=== PATIENT | female | born 1950 | race Caucasian/White ===

== ENCOUNTER 2018-08-26 14:54 | Inpatient (IN) | payer MEDICARE ==
[2018-08-26] MEDS ORDERED: LORazepam 2 MG/ML INJ IV STA (15:28)
[2018-08-26] MEDS ORDERED: SODIUM CHLORIDE 0.9% 500 ML 500 ML IV STA (15:28)
[2018-08-26] MEDS ORDERED: MECLIZINE 12.5 MG TAB PO STA (15:28)
[2018-08-26] MEDS ORDERED: METOCLOPRAMIDE 5 MG/ML 2 ML VIAL IVP STA (15:28)
--- NOTE | 2018-08-26 15:47 | ED ---
General Adult HPI - General Chief complaint: Recheck/Abnormal Lab/Rx Stated complaint: poss sepsis Time Seen by Provider: 08/26/18 15:16 Source: patient, EMS, RN notes reviewed Mode of arrival: EMS Limitations: no limitations - History of Present Illness Initial comments: Chief complaint and history of present illness; this is a 67-year-old female with a complaint of nausea vomiting ongoing for approximately 24 hours. Patient is a transfer from [facility]. At her facility she was treated for accelerated hypertension with labetalol. Also treated for hypokalemia, she received IV fluids. She had a CAT scan of her brain which was reported to be negative per radiologist as well as an abdominal CAT scan with contrast which was negative as well for pathology. Urine was clean. White count was elevated 22,000 with a mildly elevated lactic acid. She was transferred here. Patient reports this happened before, several years ago necessitating admission. The patient reports she has ALLERGIES to any movement of her head causes nausea and vomiting. She is denying headache no chest pain no shortness of breath no neuro deficits other than dizziness associated with head movement. - Related Data Allergies Allergy/AdvReac Type Severity Reaction Status Date / Time naproxen [From Naprosyn] Allergy Unknown Verified 08/26/18 15:20 Review of Systems ROS Statement: Those systems with pertinent positive or pertinent negative responses have been documented in the HPI. Review of systems. Patient was accepted transfer from [facility]. She received IV antibiotics there, CAT scan of her brain and abdomen was reported to be negative. She was treated for accelerated hypertension. As well as hypokalemia. No headache but she is dizzy with head movement no change in visual acuity denies any neck ache no shortness of breath no palpitations she is nauseated and vomiting precipitated by head movement and position changes. No back pain. sHe does report she's had increased urinations. She does have type 2 diabetes. Denies any weakness. No focal or lateralizing complaints. All systems are reviewed. Past medical problems significant for vertigo. Also type 2 diabetes, hypertension, fibromyalgia, diverticulitis. Surgeries bowel resection because of a ruptured bowel and diverticulitis. Also tonsils and adenoids removed, partial hysterectomy and appendectomy. The patient family history is unknown to her she was adopted. She uses medical marijuana for chronic pain. Reports ALLERGIES to naproxen which causes hives. Denies alcohol use. ROS Other: All systems not noted in ROS Statement are negative. Past Medical History Past Medical History: Diabetes Mellitus, Hypertension Additional Past Medical History / Comment(s): diverticulitis, vertigo Additional Past Surgical History / Comment(s): 12 inch colon resection. Smoking Status: Never smoker Past Alcohol Use History: None Reported Past Drug Use History: Marijuana General Exam - General Exam Comments Initial Comments: General: The patient is awake and alert, patient presents with a complaint of dizziness with head movement. She was transferred from another facility where workup at that time found her to have leukocytosis of 22,000. This was after 24 hours of vomiting as well as elevated lactic acid and elevated blood sugar of 350. Low potassium 2.8. The patient was given labetalol and potassium at the other facility. Patient states she's feeling better vital signs on rolled while emergency room temp 98.7 pulse 96 respiratory rate 18 pulse ox 95% in room air with a blood pressure 177/95. Eye: Pupils are equal, round and reactive to light, extra-ocular movements are intact ; there is normal conjunctiva bilaterally. No signs of icterus. No nystagmus Ears, nose, mouth and throat: There are moist mucous membranes and no oral lesions. Neck: The neck is supple, there is no tenderness , no carotid bruit. Cardiovascular: There is a regular rate and rhythm. No murmur, rub or gallop is appreciated. Respiratory: Lungs are clear to auscultation, respirations are non-labored, breath sounds are equal. No wheezes, stridor, rales, or rhonchi. Gastrointestinal: Soft, non-distended, non-tender abdomen without masses or organomegaly noted. There is no rebound or guarding present. No CVA tenderness. Bowel sounds are unremarkable. Back: There is no tenderness to palpation in the midline. There is no obvious deformity. No rashes noted. Musculoskeletal: Normal ROM, no tenderness, There is no pedal edema. There is no calf tenderness or swelling. Sensation intact. Pulses equal bilaterally 2+. Neurological: CN II-XII intact, There are no obvious motor or sensory deficits. Coordination appears grossly intact. Speech is normal. No focal or lateralizing findings. Patient is dizzy though with head movement. Skin: Skin is warm and dry and no rashes or lesions are noted. Psychiatric: Cooperative, appropriate mood & affect, normal judgment. Limitations: no limitations Course Vital Signs 08/26/18 08/26/18 08/26/18 14:55 15:04 15:30 Temperature 98.8 F Pulse Rate 96 94 Respiratory 18 18 Rate Blood Pressure 177/95 177/95 O2 Sat by Pulse 95 96 99 Oximetry 08/26/18 08/26/18 16:00 16:30 Temperature Pulse Rate 94 91 Respiratory 14 18 Rate Blood Pressure 169/100 161/84 O2 Sat by Pulse 99 98 Oximetry EKG Findings - EKG Comments: EKG Findings:: EKG was done at 1516 showing normal sinus rhythm with sinus arrhythmia. No acute ST elevation possible left atrial enlargement. Rate 87 SD interval is 140 QRS 94 QTc 474. No acute ST elevation. Dr. Adair Medical Decision Making - Medical Decision Making Medical decision making; this is a 67-year-old female transferred from [facility] ER to [facility] facility. At that facility she had several complaints one of which was significantly elevated blood pressure currently well managed. Dizziness associated with head movement. She underwent CAT scan of brain and abdomen while there. Both reported to be negative by radiology. She had an elevated white count, urine was clean, she also had lactic acidosis.. The patient was started on Zosyn. also had . Here in emergency room the patient was given IV fluids, Antivert by mouth and Ativan as well as Reglan. The patient reports her dizziness is gone. Vital signs are stable. The patient be admitted for observation with a diagnosis of accelerated hypertension, symptomatic . Labs performed here in the emergency room show white count 16,000 hemoglobin 15.8 hematocrit of 48, potassium 4.1 with BUN 12 creatinine 0.7 and GFR 90. Glucose 205 at bedside was 175. Urine is clean no signs of infection. The patient's feeling significantly better after medications given here including rehydration. I discussed the case with Dr. garza. Patient be admitted to his service for further evaluation. Patient be admitted diagnosis of vertigo, symptomatic as well as urgent hypertension and lactic acidosis. Dr. garza will decide further management of medications including Zosyn if deemed necessary. Dr. Adair - Lab Data Result diagrams: 08/26/18 15:55 08/26/18 15:55 Lab Results 08/26/18 08/26/18 08/26/18 Range/Units 15:55 15:55 15:55 WBC 16.2 H (3.8-10.6) k/uL RBC 5.39 (3.80-5.40) m/uL Hgb 15.8 (11.4-16.0) gm/dL Hct 48.3 H (34.0-46.0) % MCV 89.6 (80.0-100.0) fL MCH 29.3 (25.0-35.0) pg MCHC 32.7 (31.0-37.0) g/dL RDW 13.8 (11.5-15.5) % Plt Count 322 (150-450) k/uL Neutrophils % 90 % Lymphocytes % 6 % Monocytes % 4 % Eosinophils % 0 % Basophils % 0 % Neutrophils # 14.5 H (1.3-7.7) k/uL Lymphocytes # 0.9 L (1.0-4.8) k/uL Monocytes # 0.6 (0-1.0) k/uL Eosinophils # 0.1 (0-0.7) k/uL Basophils # 0.0 (0-0.2) k/uL Sodium 138 (137-145) mmol/L Potassium 4.1 (3.5-5.1) mmol/L Chloride 104 (98-107) mmol/L Carbon Dioxide 22 (22-30) mmol/L Anion Gap 12 mmol/L BUN 12 (7-17) mg/dL Creatinine 0.70 (0.52-1.04) mg/dL Est GFR (CKD-EPI)AfAm >90 (>60 ml/min/1.73 sqM) Est GFR (CKD-EPI)NonAf 90 (>60 ml/min/1.73 sqM) Glucose 205 H (74-99) mg/dL POC Glucose (mg/dL) (75-99) mg/dL POC Glu Ceramic Tile Mechanic ID Calcium 8.3 L (8.4-10.2) mg/dL Total Bilirubin 0.9 (0.2-1.3) mg/dL AST 26 (14-36) U/L ALT 28 (9-52) U/L Alkaline Phosphatase 81 (38-126) U/L Total Protein 7.3 (6.3-8.2) g/dL Albumin 4.2 (3.5-5.0) g/dL Urine Color Colorless Urine Appearance Clear (Clear) Urine pH 6.5 (5.0-8.0) Ur Specific [place] 1.016 (1.001-1.035) Urine Protein 1+ H (Negative) Urine Glucose (UA) 4+ H (Negative) Urine Ketones 1+ H (Negative) Urine Blood Trace H (Negative) Urine Nitrite Negative (Negative) Urine Bilirubin Negative (Negative) Urine Urobilinogen <2.0 (<2.0) mg/dL Ur Leukocyte Esterase Negative (Negative) Urine RBC <1 (0-5) /hpf Urine WBC 1 (0-5) /hpf Ur Squamous Epith Cells 1 (0-4) /hpf Urine Bacteria Rare H (None) /hpf Urine Mucus Rare H (None) /hpf 08/26/18 Range/Units 16:42 WBC (3.8-10.6) k/uL RBC (3.80-5.40) m/uL Hgb (11.4-16.0) gm/dL Hct (34.0-46.0) % MCV (80.0-100.0) fL MCH (25.0-35.0) pg MCHC (31.0-37.0) g/dL RDW (11.5-15.5) % Plt Count (150-450) k/uL Neutrophils % % Lymphocytes % % Monocytes % % Eosinophils % % Basophils % % Neutrophils # (1.3-7.7) k/uL Lymphocytes # (1.0-4.8) k/uL Monocytes # (0-1.0) k/uL Eosinophils # (0-0.7) k/uL Basophils # (0-0.2) k/uL Sodium (137-145) mmol/L Potassium (3.5-5.1) mmol/L Chloride (98-107) mmol/L Carbon Dioxide (22-30) mmol/L Anion Gap mmol/L BUN (7-17) mg/dL Creatinine (0.52-1.04) mg/dL Est GFR (CKD-EPI)AfAm (>60 ml/min/1.73 sqM) Est GFR (CKD-EPI)NonAf (>60 ml/min/1.73 sqM) Glucose (74-99) mg/dL POC Glucose (mg/dL) 173 H (75-99) mg/dL POC Glu Ceramic Tile Mechanic ID February Calcium (8.4-10.2) mg/dL Total Bilirubin (0.2-1.3) mg/dL AST (14-36) U/L ALT (9-52) U/L Alkaline Phosphatase (38-126) U/L Total Protein (6.3-8.2) g/dL Albumin (3.5-5.0) g/dL Urine Color Urine Appearance (Clear) Urine pH (5.0-8.0) Ur Specific [place] (1.001-1.035) Urine Protein (Negative) Urine Glucose (UA) (Negative) Urine Ketones (Negative) Urine Blood (Negative) Urine Nitrite (Negative) Urine Bilirubin (Negative) Urine Urobilinogen (<2.0) mg/dL Ur Leukocyte Esterase (Negative) Urine RBC (0-5) /hpf Urine WBC (0-5) /hpf Ur Squamous Epith Cells (0-4) /hpf Urine Bacteria (None) /hpf Urine Mucus (None) /hpf Disposition Clinical Impression: Vertigo, Dehydration, moderate, Lactic acidosis, Hypertensive urgency Disposition: ADMITTED IP TO THIS [facility] Condition: Serious Is patient prescribed a controlled substance at d/c from ED?: No Referrals: None,Stated [Primary Care Provider] - 1-2 days
[2018-08-26 16:12] LABS: Basophils % (A) 0 %; Eosinophils # (A) 0.1 k/uL (0-0.7); Eosinophils % (A) 0 %; HCT 48.3 % (34.0-46.0); HGB 15.8 gm/dL (11.4-16.0); Lymphocytes # (A) 0.9 k/uL (1.0-4.8); Lymphocytes % (A) 6 %; MCH 29.3 pg (25.0-35.0); MCHC 32.7 g/dL (31.0-37.0); MCV 89.6 fL (80.0-100.0); Mean Platelet Volume 6.8; Monocytes # (A) 0.6 k/uL (0-1.0); Monocytes % (A) 4 %; Neutrophils # (A) 14.5 k/uL (1.3-7.7); Neutrophils % (A) 90 %; Platelet Count 322 k/uL (150-450); RBC 5.39 m/uL (3.80-5.40); RDW 13.8 % (11.5-15.5); WBC 16.2 k/uL (3.8-10.6)
[2018-08-26 16:14] LABS: Appearance,Urine Clear (Clear); Bacteria,Urine Rare /hpf; Bilirubin,Urine Negative (Negative); Blood,Urine Trace (Negative); Color,Urine Colorless; Glucose,Urine (UA) 4+ (Negative); Ketones,Urine 1+ (Negative); Leukocyte Esterase,Urine Negative (Negative); Mucus,Urine Rare /hpf; Nitrite,Urine Negative (Negative); PH, Urine 6.5 (5.0-8.0); Protein,Urine 1+ (Negative); RBC,Urine <1 /hpf (0-5); Specific Gravity,Urine 1.016 (1.001-1.035); Squamous Epithelial Cell,Urine 1 /hpf (0-4); Urobilinogen,Urine <2.0 mg/dL (<2.0); WBC,Urine 1 /hpf (0-5)
[2018-08-26 16:15] LABS: ALT 28 U/L (9-52); AST 26 U/L (14-36); Albumin 4.2 g/dL (3.5-5.0); Alkaline Phosphatase 81 U/L (38-126); Anion Gap 12 mmol/L; Blood Urea Nitrogen 12 mg/dL (7-17); Calcium 8.3 mg/dL (8.4-10.2); Carbon Dioxide 22 mmol/L (22-30); Chloride 104 mmol/L (98-107); Glucose 205 mg/dL (74-99); Potassium 4.1 mmol/L (3.5-5.1); Sodium 138 mmol/L (137-145); Total Bilirubin 0.9 mg/dL (0.2-1.3); Total Protein 7.3 g/dL (6.3-8.2)
[2018-08-26 16:45] LABS: Glucose,Whole Blood 173 mg/dL (75-99)
[2018-08-26] MEDS ORDERED: NALOXONE 0.4 MG/ML 1 ML VIAL IV PRN (17:23)
[2018-08-26] MEDS: SODIUM CHLORIDE 0.9% 1,000 ML IV SCH (20:15)
[2018-08-27] MEDS: GLIMEPIRIDE 2 MG TAB PO SCH ×2 (02:31→10:00)
[2018-08-27 04:43] LABS: Glucose,Whole Blood 146 mg/dL (75-99)
[2018-08-27] MEDS: ENALAPRILAT 1.25 MG/ML 1 ML VIAL IVP PRN ×2 (06:35→17:38)
[2018-08-27] MEDS: ONDANSETRON 4 MG/2 ML VIAL IVP PRN ×2 (06:37→22:38)
[2018-08-27 07:23] LABS: Basophils % (A) 0 %; Eosinophils # (A) 0.1 k/uL (0-0.7); Eosinophils % (A) 0 %; HCT 45.1 % (34.0-46.0); HGB 15.1 gm/dL (11.4-16.0); Lymphocytes # (A) 1.6 k/uL (1.0-4.8); Lymphocytes % (A) 7 %; MCH 29.7 pg (25.0-35.0); MCHC 33.6 g/dL (31.0-37.0); MCV 88.4 fL (80.0-100.0); Mean Platelet Volume 6.6; Monocytes # (A) 0.9 k/uL (0-1.0); Monocytes % (A) 4 %; Neutrophils # (A) 21.5 k/uL (1.3-7.7); Neutrophils % (A) 89 %; Platelet Count 330 k/uL (150-450); RDW 13.8 % (11.5-15.5); WBC 24.3 k/uL (3.8-10.6)
[2018-08-27 07:36] LABS: Calcium 8.5 mg/dL (8.4-10.2); Potassium 4.1 mmol/L (3.5-5.1)
[2018-08-27] MEDS: PANTOPRAZOLE 40 MG/10 ML VIAL IV SCH (10:11)
[2018-08-27] MEDS: SODIUM CHLORIDE 0.9% 1,000 ML IV SCH ×3 (10:11→21:19)
[2018-08-27 13:10] VITALS: BMI 25.0
--- NOTE | 2018-08-27 16:33 | P.HPIM ---
History of Present Illness H&P Date: 08/27/18 Chief complaint and history of present illness; this is a 67-year-old female with a complaint of nausea vomiting ongoing for approximately 24 hours. Patient is a transfer from [facility]. At her facility she was treated for accelerated hypertension with labetalol. Also treated for hypokalemia, she received IV fluids. She had a CAT scan of her brain which was reported to be negative per radiologist as well as an abdominal CAT scan with contrast which was negative as well for pathology. Urine was clean. White count was elevated 22,000 with a mildly elevated lactic acid. She was transferred here. Patient reports this happened before, several years ago necessitating admission. The patient reports she has ALLERGIES to any movement of her head causes nausea and vomiting. She is denying headache no chest pain no shortness of breath no neuro deficits other than dizziness associated with head movement. Review of Systems Constitutional: Denies chills, Denies fever Eyes: denies blurred vision, denies dry eye, denies loss of vision Ears, nose, mouth and throat: Denies epistaxis, Denies headache, Denies nasal congestion, Denies voice changes Cardiovascular: Denies dyspnea on exertion, Denies lightheadedness, Denies syncope Respiratory: Reports congestion, Denies hemoptysis Gastrointestinal: Denies abdominal pain, Denies nausea, Denies vomiting Genitourinary: Denies dysuria, Denies hematuria, Denies urinary frequency Musculoskeletal: Denies frequent falls, Denies gait dysfunction, Denies low back pain Past Medical History Past Medical History: Diabetes Mellitus, Hypertension Additional Past Medical History / Comment(s): diverticulitis, vertigo Additional Past Surgical History / Comment(s): 12 inch colon resection. Smoking Status: Never smoker Past Alcohol Use History: None Reported Past Drug Use History: Marijuana Medications and Allergies Home Medications Medication Instructions Recorded Confirmed Type No Known Home Medications 08/26/18 08/26/18 History Allergies Allergy/AdvReac Type Severity Reaction Status Date / Time naproxen [From Naprosyn] Allergy Unknown Verified 08/26/18 18:10 Physical Exam Vitals: Vital Signs Temp Pulse Pulse Resp BP BP Pulse Ox 08/27/18 08:00 97.9 F 88 18 164/94 98 08/27/18 07:48 99 08/27/18 06:30 104 H 18 208/106 97 08/27/18 04:30 98.3 F 106 H 15 155/88 99 08/27/18 02:30 96 16 137/78 96 08/27/18 02:00 98 16 143/80 95 08/27/18 00:04 98 18 08/27/18 00:00 89 13 155/91 95 08/26/18 23:00 98 14 140/72 96 08/26/18 22:00 93 16 140/72 97 08/26/18 21:09 95 16 140/72 98 08/26/18 21:00 93 14 189/88 97 08/26/18 20:30 94 14 189/88 96 08/26/18 20:00 99 12 189/88 97 08/26/18 19:30 111 H 26 H 133/82 08/26/18 19:11 98.6 F 96 18 133/82 98 08/26/18 19:00 94 13 135/80 08/26/18 17:00 96 13 142/81 100 08/26/18 16:30 91 18 161/84 98 08/26/18 16:00 94 14 169/100 99 08/26/18 15:30 94 18 177/95 99 08/26/18 15:04 96 08/26/18 14:55 98.8 F 96 18 177/95 95 Intake and Output 08/26/18 08/27/18 08/27/18 22:59 06:59 14:59 Output Total 490 300 Balance -490 -300 Output: Urine 490 300 Uretheral (Watson) 490 - Constitutional General appearance: Present: average body habitus, cooperative, no acute distress - EENT Eyes: Present: anicteric sclerae, EOMI, PERRLA, normal appearance ENT: Present: hearing grossly normal, normal oropharynx Ears: bilateral: normal - Neck Neck: Present: normal ROM. Absent: lymphadenopathy, rigidity, thyromegaly Carotids: negative: bruit present Thyroid: bilateral: normal size, negative: enlarged, nodule - Respiratory Respiratory: bilateral: CTA, negative: rales, rhonchi, wheezing - Cardiovascular Rhythm: regular Heart sounds: normal: S1, S2 Abnormal Heart Sounds: Absent: systolic murmur, diastolic murmur - Gastrointestinal General gastrointestinal: Present: normal bowel sounds, soft. Absent: distended , organomegaly, tenderness - Genitourinary Genitourinary Comment(s): deferred - Integumentary Integumentary: Present: normal turgor. Absent: jaundiced, rash, ulcer - Neurologic Neurologic: Present: CNII-XII intact. Absent: focal deficits - Musculoskeletal Musculoskeletal: Present: gait normal, strength equal bilaterally - Psychiatric Psychiatric: Present: A&O x's 3, appropriate affect, intact judgment & insight Results CBC & Chem 7: 08/27/18 07:11 08/27/18 07:11 Labs: Abnormal Lab Results - Last 24 Hours (Table) 08/26/18 08/26/18 08/26/18 Range/Units 15:55 15:55 15:55 WBC 16.2 H (3.8-10.6) k/uL Hct 48.3 H (34.0-46.0) % Neutrophils # 14.5 H (1.3-7.7) k/uL Lymphocytes # 0.9 L (1.0-4.8) k/uL Chloride (98-107) mmol/L Glucose 205 H (74-99) mg/dL POC Glucose (mg/dL) (75-99) mg/dL Plasma Lactic Acid [place] (0.7-2.0) mmol/L Calcium 8.3 L (8.4-10.2) mg/dL Urine Protein 1+ H (Negative) Urine Glucose (UA) 4+ H (Negative) Urine Ketones 1+ H (Negative) Urine Blood Trace H (Negative) Urine Bacteria Rare H (None) /hpf Urine Mucus Rare H (None) /hpf 08/26/18 08/26/18 08/27/18 Range/Units 16:42 17:30 04:39 WBC (3.8-10.6) k/uL Hct (34.0-46.0) % Neutrophils # (1.3-7.7) k/uL Lymphocytes # (1.0-4.8) k/uL Chloride (98-107) mmol/L Glucose (74-99) mg/dL POC Glucose (mg/dL) 173 H 146 H (75-99) mg/dL Plasma Lactic Acid [place] 2.4 H* (0.7-2.0) mmol/L Calcium (8.4-10.2) mg/dL Urine Protein (Negative) Urine Glucose (UA) (Negative) Urine Ketones (Negative) Urine Blood (Negative) Urine Bacteria (None) /hpf Urine Mucus (None) /hpf 08/27/18 08/27/18 Range/Units 07:11 07:11 WBC 24.3 H (3.8-10.6) k/uL Hct (34.0-46.0) % Neutrophils # 21.5 H (1.3-7.7) k/uL Lymphocytes # (1.0-4.8) k/uL Chloride 109 H (98-107) mmol/L Glucose 154 H (74-99) mg/dL POC Glucose (mg/dL) (75-99) mg/dL Plasma Lactic Acid [place] (0.7-2.0) mmol/L Calcium (8.4-10.2) mg/dL Urine Protein (Negative) Urine Glucose (UA) (Negative) Urine Ketones (Negative) Urine Blood (Negative) Urine Bacteria (None) /hpf Urine Mucus (None) /hpf Assessment and Plan Assessment: 1. Accelerated hypertension 2. Hyperglycemia without acidosis 3. Marked Leukocytosis; sepsis versus reactive leukocytosis 4. Lactic acidosis 5. Vertigo/dizziness Plan; 67-year-old female transferred from [facility] ER to [facility] facility. At that facility she had several complaints one of which was significantly elevated blood pressure currently well managed. Dizziness associated with head movement. She underwent CAT scan of brain and abdomen while there. Both reported to be negative by radiology. She had an elevated white count, urine was clean, she also had lactic acidosis.. The patient was started on Zosyn. also had . Here in emergency room the patient was given IV fluids, Antivert by mouth and Ativan as well as Reglan. The patient reports her dizziness is gone. Vital signs are stable. The patient be admitted for observation with a diagnosis of accelerated hypertension, symptomatic . Labs performed here in the emergency room show white count 16,000 hemoglobin 15.8 hematocrit of 48, potassium 4.1 with BUN 12 creatinine 0.7 and GFR 90. Glucose 205 at bedside was 175. Urine is clean no signs of infection. The patient's feeling significantly better after medications given here including rehydration. I discussed the case with Dr. garza. Patient be admitted to his service for further evaluation. Patient be admitted diagnosis of vertigo, symptomatic as well as urgent hypertension and lactic acidosis. Dr. garza will decide further management of medications including Zosyn if deemed necessary. Time with Patient: Greater than 30
[2018-08-27 17:03] LABS: Glucose,Whole Blood 155 mg/dL (75-99)
[2018-08-27] MEDS: INSULIN ASPART 100 UNIT/ML 1 ML 10 ML VIAL SQ SCH ×2 (18:25→21:13)
[2018-08-27 21:05] LABS: Glucose,Whole Blood 106 mg/dL (75-99)
[2018-08-27] MEDS: HYDROcodone/APAP 5-325MG 1 EACH TAB PO PRN (22:38)
[2018-08-27] MEDS: MECLIZINE 12.5 MG TAB PO PRN (22:59)
[2018-08-28] MEDS: ENALAPRILAT 1.25 MG/ML 1 ML VIAL IVP PRN ×2 (00:04→08:21)
[2018-08-28] MEDS: INSULIN ASPART 100 UNIT/ML 1 ML 10 ML VIAL SQ SCH ×4 (06:35→21:19)
[2018-08-28] MEDS: GLIMEPIRIDE 2 MG TAB PO SCH (06:36)
[2018-08-28 06:43] LABS: Glucose,Whole Blood 141 mg/dL (75-99)
[2018-08-28 07:41] LABS: Basophils # (A) 0.1 k/uL (0-0.2); Basophils % (A) 0 %; Eosinophils # (A) 0.1 k/uL (0-0.7); Eosinophils % (A) 1 %; HCT 45.4 % (34.0-46.0); HGB 14.9 gm/dL (11.4-16.0); Lymphocytes # (A) 3.1 k/uL (1.0-4.8); Lymphocytes % (A) 22 %; MCH 29.4 pg (25.0-35.0); MCHC 32.9 g/dL (31.0-37.0); MCV 89.5 fL (80.0-100.0); Mean Platelet Volume 6.6; Monocytes # (A) 0.7 k/uL (0-1.0); Monocytes % (A) 5 %; Neutrophils # (A) 9.9 k/uL (1.3-7.7); Neutrophils % (A) 71 %; Platelet Count 310 k/uL (150-450); RBC 5.07 m/uL (3.80-5.40); RDW 13.8 % (11.5-15.5)
[2018-08-28 08:00] LABS: Calcium 8.6 mg/dL (8.4-10.2); Potassium 3.8 mmol/L (3.5-5.1)
[2018-08-28] MEDS: PANTOPRAZOLE 40 MG/10 ML VIAL IV SCH (08:14)
[2018-08-28 11:42] LABS: Glucose,Whole Blood 119 mg/dL (75-99)
[2018-08-28] MEDS ORDERED: LISINOPRIL-HCTZ 20-12.5 MG 1 EACH TAB PO SCH (12:00)
[2018-08-28 12:03] LABS: Hemoglobin A1C 7.3 % (4.0-6.0)
[2018-08-28] MEDS: HYDROcodone/APAP 5-325MG 1 EACH TAB PO PRN ×2 (12:56→21:06)
--- NOTE | 2018-08-28 14:08 | P.PN ---
Subjective Progress Note Date: 08/28/18 Principal diagnosis: Accelerated hypertension Leukocytosis rule out sepsis 67-year-old female with a complaint of nausea vomiting ongoing for approximately 24 hours. Patient is a transfer from [facility]. At her facility she was treated for accelerated hypertension with labetalol. Also treated for hypokalemia, she received IV fluids. She had a CAT scan of her brain which was reported to be negative per radiologist as well as an abdominal CAT scan with contrast which was negative as well for pathology. Urine was clean. White count was elevated 22,000 with a mildly elevated lactic acid. She was transferred here. Patient reports this happened before, several years ago necessitating admission. The patient reports she has ALLERGIES to any movement of her head causes nausea and vomiting. She is denying headache no chest pain no shortness of breath no neuro deficits other than dizziness associated with head movement. 08/28/2018; Patient is seen for follow-up for uncontrolled hypertension and leukocytosis with possible sepsis; patient's family member is present at the bedside; we did talk recommend continuing IV Zosyn for possible sepsis and consult ID for further recommendations Patient's blood pressure remains markedly elevated; I will start patient on Zestoretic 2012.5 mg daily;; this was related to patient's and family in great detail and they're agreeable; we will continue with IV antibiotics and consult ID for further recommendations Objective - Vital Signs Vital signs: Vital Signs Temp 98.3 F 08/28/18 08:00 Pulse 86 08/28/18 11:56 Resp 17 08/28/18 11:56 BP 189/90 08/28/18 11:56 Pulse Ox 97 08/28/18 11:56 Intake & Output 08/27/18 08/28/18 08/28/18 18:59 06:59 18:59 Intake Total 480 340 Output Total 1400 Balance 480 -1400 340 Weight 68.039 kg 74.8 kg Intake: Intake, IV Titration 240 Amount Sodium Chloride 0.9% 1, 240 000 ml @ 80 mls/hr IV . [id number] [facility] Rx#:[id number] Oral 240 340 Output: Urine 1400 Other: Voiding Method Indwelling Catheter Indwelling Catheter Indwelling Catheter - Exam - Constitutional General appearance: Present: average body habitus, cooperative, no acute distress - EENT Eyes: Present: anicteric sclerae, EOMI, PERRLA, normal appearance ENT: Present: hearing grossly normal, normal oropharynx Ears: bilateral: normal - Neck Neck: Present: normal ROM. Absent: lymphadenopathy, rigidity, thyromegaly Carotids: negative: bruit present Thyroid: bilateral: normal size, negative: enlarged, nodule - Respiratory Respiratory: bilateral: CTA, negative: rales, rhonchi, wheezing - Cardiovascular Rhythm: regular Heart sounds: normal: S1, S2 Abnormal Heart Sounds: Absent: systolic murmur, diastolic murmur - Gastrointestinal General gastrointestinal: Present: normal bowel sounds, soft. Absent: distended , organomegaly, tenderness - Genitourinary Genitourinary Comment(s): deferred - Integumentary Integumentary: Present: normal turgor. Absent: jaundiced, rash, ulcer - Neurologic Neurologic: Present: CNII-XII intact. Absent: focal deficits - Musculoskeletal Musculoskeletal: Present: gait normal, strength equal bilaterally - Psychiatric Psychiatric: Present: A&O x's 3, appropriate affect, intact judgment & insight - Labs CBC & Chem 7: 08/28/18 07:26 08/28/18 07:26 Labs: Abnormal Lab Results - Last 24 Hours (Table) 08/27/18 08/27/18 08/27/18 Range/Units 07:11 16:53 17:09 WBC (3.8-10.6) k/uL Neutrophils # (1.3-7.7) k/uL Chloride (98-107) mmol/L Glucose (74-99) mg/dL POC Glucose (mg/dL) 155 H (75-99) mg/dL Hemoglobin A1c 7.3 H (4.0-6.0) % Procalcitonin 0.26 H (0.02-0.09) ng/mL 08/27/18 08/28/18 08/28/18 Range/Units 20:38 06:28 07:26 WBC 14.0 H (3.8-10.6) k/uL Neutrophils # 9.9 H (1.3-7.7) k/uL Chloride (98-107) mmol/L Glucose (74-99) mg/dL POC Glucose (mg/dL) 106 H 141 H (75-99) mg/dL Hemoglobin A1c (4.0-6.0) % Procalcitonin (0.02-0.09) ng/mL 08/28/18 08/28/18 Range/Units 07:26 11:40 WBC (3.8-10.6) k/uL Neutrophils # (1.3-7.7) k/uL Chloride 110 H (98-107) mmol/L Glucose 129 H (74-99) mg/dL POC Glucose (mg/dL) 119 H (75-99) mg/dL Hemoglobin A1c (4.0-6.0) % Procalcitonin (0.02-0.09) ng/mL Assessment and Plan Assessment: 1. Accelerated hypertension 2. Hyperglycemia without acidosis 3. Marked Leukocytosis; sepsis versus reactive leukocytosis 4. Lactic acidosis 5. Vertigo/dizziness Plan; 67-year-old female transferred from [facility] ER to [facility] facility. At that facility she had several complaints one of which was significantly elevated blood pressure currently well managed. Dizziness associated with head movement. She underwent CAT scan of brain and abdomen while there. Both reported to be negative by radiology. She had an elevated white count, urine was clean, she also had lactic acidosis.. The patient was started on Zosyn. also had . Here in emergency room the patient was given IV fluids, Antivert by mouth and Ativan as well as Reglan. The patient reports her dizziness is gone. Vital signs are stable. The patient be admitted for observation with a diagnosis of accelerated hypertension, symptomatic . Labs performed here in the emergency room show white count 16,000 hemoglobin 15.8 hematocrit of 48, potassium 4.1 with BUN 12 creatinine 0.7 and GFR 90. Glucose 205 at bedside was 175. Urine is clean no signs of infection. The patient's feeling significantly better after medications given here including rehydration. I discussed the case with Dr. garza. Patient be admitted to his service for further evaluation. Patient be admitted diagnosis of vertigo, symptomatic as well as urgent hypertension and lactic acidosis. Dr. garza will decide further management of medications including Zosyn if deemed necessary. Time with Patient: Greater than 30
[2018-08-28] MEDS: PIPERACILLIN-TAZOBACTAM 3.375 GM in DEXTROSE/WATER 1 50ML.BAG IVPB SCH ×2 (15:28→22:57)
[2018-08-28 16:34] LABS: Glucose,Whole Blood 129 mg/dL (75-99)
[2018-08-28] MEDS: SODIUM CHLORIDE 0.9% 1,000 ML IV SCH (21:08)
[2018-08-28 21:13] LABS: Glucose,Whole Blood 172 mg/dL (75-99)
[2018-08-29] MEDS: HYDROcodone/APAP 5-325MG 1 EACH TAB PO PRN ×4 (03:13→23:13)
[2018-08-29] MEDS: GLIMEPIRIDE 2 MG TAB PO SCH (06:38)
[2018-08-29] MEDS: PANTOPRAZOLE 40 MG TABLET PO SCH (06:38)
[2018-08-29] MEDS: INSULIN ASPART 100 UNIT/ML 1 ML 10 ML VIAL SQ SCH ×4 (06:38→20:56)
[2018-08-29 06:42] LABS: Glucose,Whole Blood 111 mg/dL (75-99)
[2018-08-29] MEDS: PIPERACILLIN-TAZOBACTAM 3.375 GM in DEXTROSE/WATER 1 50ML.BAG IVPB SCH ×3 (08:00→23:06)
[2018-08-29] MEDS: SODIUM CHLORIDE 0.9% 1,000 ML IV SCH (08:01)
[2018-08-29] MEDS: LISINOPRIL 20 MG TAB PO SCH (09:04)
--- NOTE | 2018-08-29 09:45 | CONS ---
CONSULTATION DATE OF SERVICE: 08/28/2018 REASON FOR CONSULTATION: Leukocytosis. HISTORY OF PRESENT ILLNESS: The patient is a 67-year-old female who was brought into the ER at [facility] with chief complaints of nausea and vomiting that has been going on for almost 24 hours. The patient initially presented to [facility] where the patient was noticed to have accelerated hypertension that has been treated with . The patient did have a CT of abdomen and pelvis with contrast which was negative for any pathology. Her white count was elevated and the patient did have elevated lactic acid. Subsequently patient was transferred to the [facility] ER for further evaluation of the same. Since the patient has been at this facility, the patient currently with no further nausea or any vomiting. The patient denies having any abdominal pain. The patient denies having any diarrhea or any constipation. Denies having any burning or frequency of urine. The patient has been treated with Zosyn and her white count which was initially elevated to 16.2 was up to 24.3 yesterday however down to 14,000 today. I was asked to see the patient for further recommendation regarding her elevated white count and need for antibiotic therapy. UA has been negative. REVIEW OF SYSTEMS: CONSTITUTIONAL: Positive for weakness, but no fever. EYES: No complaint. ENT: No complaint. RESPIRATORY: No complaint. CARDIOVASCULAR: No complaint. GENITOURINARY: No complaint. GASTROINTESTINAL: As per HPI. MUSCULOSKELETAL: No complaint. INTEGUMENTARY: No complaint. PSYCHOLOGICAL: No complaint. ENDOCRINE: No complaint. NEUROLOGICAL: No complaint. PAST MEDICAL HISTORY: Diabetes mellitus, hypertension and diverticulosis. PAST SURGICAL HISTORY: Twelve inch colon resection. SOCIAL HISTORY: No history of smoking. Does admit to marijuana use. FAMILY HISTORY: No pertinent findings noticed. ALLERGIES: Allergies to NAPROXEN. MEDICATIONS: Medications currently include the patient is on Ruby, Amaryl, Zestoretic, NovoLog, Antivert, Narcan Zofran, Protonix, Zosyn. PHYSICAL EXAMINATION: On examination, blood pressure is 151/89 with a pulse of 89, temperature 98.6. She is 96% on room air. General description is an elderly female lying in bed in no distress. No tachypnea or accessory muscle of respiration use. HEENT examination shows no pallor or scleral icterus. Oral mucous membrane is dry. No pharyngeal erythema or thrush. NECK: Trachea central. No thyromegaly. LUNGS: Unlabored breathing, clear to auscultation anteriorly. No wheeze or crackle. HEART: S1, S2. Regular rate and rhythm. ABDOMEN: Soft, no tenderness. No guarding or rigidity. EXTREMITIES: No edema of feet. SKIN EXAMINATION: No rash or mass palpable. NEUROLOGICAL: Patient is awake, alert, oriented x3. Mood and affect normal. LABS: Hemoglobin is 14.9. White count down 14,000. BUN has been 15, creatinine 0.[address] of abdomen and pelvis apparently done at [facility] has been negative. DIAGNOSTIC IMPRESSION AND PLAN: Patient with leukocytosis, more likely related to her gastrointestinal illness which seems to be more of a food poisoning or acute gastritis as the patient had no other clinical focus of infection. Her lungs were clear to auscultation, UA has been negative and abdomen was soft on palpation and no evidence of any cellulitis. PLAN: 1. If the patient some loose stool, recommend obtaining stool studies. 2. Currently on Zosyn as the patient's white count normalized. May consider a short course of oral Cipro and Flagyl to finish course of therapy. Thank you for this consultation. Will follow this patient along with you. MMODL / IJN: [id number] /
[2018-08-29] MEDS ORDERED: amLODIPine 5 MG TAB PO STA (11:17)
[2018-08-29 12:00] LABS: Glucose,Whole Blood 166 mg/dL (75-99)
[2018-08-29] MEDS: DOCUSATE 100 MG CAP PO SCH ×2 (13:37→20:17)
[2018-08-29] MEDS ORDERED: cloNIDine HCL 0.2 MG TAB PO STA (13:49)
[2018-08-29 17:15] LABS: Glucose,Whole Blood 156 mg/dL (75-99)
[2018-08-29] MEDS: HEPARIN SODIUM,PORCINE 5,000 UNIT/ML 1 ML VIAL SQ SCH ×2 (17:15→23:06)
[2018-08-29] MEDS: cloNIDine HCL 0.1 MG TAB PO SCH (20:17)
[2018-08-29 20:55] LABS: Glucose,Whole Blood 165 mg/dL (75-99)
--- NOTE | 2018-08-29 23:25 | PN ---
PROGRESS NOTE DATE OF SERVICE: 08/29/2018 REASON FOR FOLLOWUP: Leukocytosis, abdominal source. INTERVAL HISTORY: The patient is afebrile. No further vomiting has been noticed. However, the patient's overall oral intake has been low, as the food is not that appealing. Did not have any diarrhea and no abdominal pain. No chest pain, shortness of breath or cough. PHYSICAL EXAMINATION: Blood pressure 175/93 with a pulse of 84, temperature 98.6. She is 94% on room air. General description is an elderly female lying in bed in no distress. RESPIRATORY SYSTEM: Unlabored breathing. Clear to auscultation anteriorly. HEART: S1, S2. Regular rate and rhythm. ABDOMEN: Soft. No tenderness. EXTREMITIES: No edema of the feet. LABS: No new labs have been obtained today. DIAGNOSTIC IMPRESSION AND PLAN: Patient admitted to hospital with intractable vomiting. Did have elevated white count with concern about possible acute gastritis/food poisoning. The patient's vomiting has resolved. No abdominal pain. No diarrhea. No CBC was done today. Will repeat her CBC tomorrow. Keep the patient on empiric Zosyn at this point. The patient's symptoms have responded. Continue with supportive care. MMODL / IJN: [id number] /
[2018-08-30 06:01] LABS: Glucose,Whole Blood 142 mg/dL (75-99)
[2018-08-30] MEDS: GLIMEPIRIDE 2 MG TAB PO SCH (06:06)
[2018-08-30] MEDS: INSULIN ASPART 100 UNIT/ML 1 ML 10 ML VIAL SQ SCH ×2 (06:06→11:44)
[2018-08-30] MEDS: PANTOPRAZOLE 40 MG TABLET PO SCH (06:06)
[2018-08-30 08:07] VITALS: TEMP 97.8
[2018-08-30] MEDS: PIPERACILLIN-TAZOBACTAM 3.375 GM in DEXTROSE/WATER 1 50ML.BAG IVPB SCH (08:09)
[2018-08-30] MEDS: LISINOPRIL 20 MG TAB PO SCH (08:09)
[2018-08-30] MEDS: HEPARIN SODIUM,PORCINE 5,000 UNIT/ML 1 ML VIAL SQ SCH (08:09)
[2018-08-30] MEDS: DOCUSATE 100 MG CAP PO SCH (08:09)
[2018-08-30] MEDS: cloNIDine HCL 0.1 MG TAB PO SCH (08:09)
[2018-08-30 08:12] LABS: Basophils % (A) 0 %; Eosinophils # (A) 0.3 k/uL (0-0.7); Eosinophils % (A) 4 %; HCT 42.3 % (34.0-46.0); HGB 14.3 gm/dL (11.4-16.0); Lymphocytes # (A) 2.3 k/uL (1.0-4.8); Lymphocytes % (A) 27 %; MCH 29.8 pg (25.0-35.0); MCHC 33.8 g/dL (31.0-37.0); Mean Platelet Volume 6.8; Monocytes # (A) 0.5 k/uL (0-1.0); Monocytes % (A) 6 %; Neutrophils # (A) 5.4 k/uL (1.3-7.7); Neutrophils % (A) 62 %; Platelet Count 299 k/uL (150-450); RBC 4.81 m/uL (3.80-5.40); RDW 13.6 % (11.5-15.5); WBC 8.7 k/uL (3.8-10.6)
[2018-08-30 08:33] LABS: Calcium 8.7 mg/dL (8.4-10.2); Potassium 3.1 mmol/L (3.5-5.1)
[2018-08-30 11:28] VITALS: BP 144/84; PULSE 73; RESP 18
[2018-08-30 11:32] LABS: Glucose,Whole Blood 181 mg/dL (75-99)
[2018-08-30] MEDS: MECLIZINE 12.5 MG TAB PO PRN (13:51)
--- NOTE | 2018-08-30 14:24 | P.PN ---
Subjective Progress Note Date: 08/29/18 Principal diagnosis: Nausea vomiting and leukocytosis 67-year-old female with a complaint of nausea vomiting ongoing for approximately 24 hours. Patient is a transfer from [facility]. At her facility she was treated for accelerated hypertension with labetalol. Also treated for hypokalemia, she received IV fluids. She had a CAT scan of her brain which was reported to be negative per radiologist as well as an abdominal CAT scan with contrast which was negative as well for pathology. Urine was clean. White count was elevated 22,000 with a mildly elevated lactic acid. She was transferred here. Patient reports this happened before, several years ago necessitating admission. The patient reports she has ALLERGIES to any movement of her head causes nausea and vomiting. She is denying headache no chest pain no shortness of breath no neuro deficits other than dizziness associated with head movement. 08/28/2018; Patient is seen for follow-up for uncontrolled hypertension and leukocytosis with possible sepsis; patient's family member is present at the bedside; we did talk recommend continuing IV Zosyn for possible sepsis and consult ID for further recommendations Patient's blood pressure remains markedly elevated; I will start patient on Zestoretic 2012.5 mg daily;; this was related to patient's and family in great detail and they're agreeable; we will continue with IV antibiotics and consult ID for further recommendations 08/29/2018 Patient's blood pressure is still uncontrolled. Denied any complaints of headache or dizziness. No compressive chest pain or shortness of breath. Patient was started on lisinopril 20 mg daily. Patient was given a dose of Catapres 0.1 mg. Patient does take Catapres 0.1 twice a day at home. Denied any complaints of abdominal pain today. Nausea and vomiting much improved. Patient continues to be on Zosyn. Cultures so far negative. ID has seen the patient and repeat CBC tomorrow. Otherwise no fever no chills. No other acute overnight issues. Current medications reviewed Objective - Vital Signs Vital signs: Vital Signs Temp 97.7 F 08/29/18 16:03 Pulse 91 08/29/18 16:03 Resp 18 08/29/18 16:03 BP 169/93 08/29/18 16:03 Pulse Ox 95 08/29/18 16:03 Intake & Output 08/28/18 08/29/18 08/29/18 18:59 06:59 18:59 Intake Total 340 50 Output Total 700 725 Balance -360 -725 50 Weight 74.5 kg Intake: Intake, IV Titration 50 Amount Piperacillin-Tazobactam 3 50 .375 gm In Dextrose/Water 1 50ml.bag @ 12.5 mls/hr IVPB Q8HR RAMIREZ Rx#: [id number] Oral 340 Output: Urine 700 725 Other: Voiding Method Indwelling Catheter Toilet Toilet # Voids 1 - Exam - Exam - Constitutional General appearance: Present: average body habitus, cooperative, no acute distress - EENT Eyes: Present: anicteric sclerae, EOMI, PERRLA, normal appearance ENT: Present: hearing grossly normal, normal oropharynx Ears: bilateral: normal - Neck Neck: Present: normal ROM. Absent: lymphadenopathy, rigidity, thyromegaly Carotids: negative: bruit present Thyroid: bilateral: normal size, negative: enlarged, nodule - Respiratory Respiratory: bilateral: CTA, negative: rales, rhonchi, wheezing - Cardiovascular Rhythm: regular Heart sounds: normal: S1, S2 Abnormal Heart Sounds: Absent: systolic murmur, diastolic murmur - Gastrointestinal General gastrointestinal: Present: normal bowel sounds, soft. Absent: distended , organomegaly, tenderness - Genitourinary Genitourinary Comment(s): deferred - Integumentary Integumentary: Present: normal turgor. Absent: jaundiced, rash, ulcer - Neurologic Neurologic: Present: CNII-XII intact. Absent: focal deficits - Musculoskeletal Musculoskeletal: Present: gait normal, strength equal bilaterally - Psychiatric Psychiatric: Present: A&O x's 3, appropriate affect, intact judgment & insight - Labs CBC & Chem 7: 08/30/18 07:18 08/30/18 07:25 Labs: Abnormal Lab Results - Last 24 Hours (Table) 08/28/18 08/28/18 08/29/18 Range/Units 16:31 21:11 06:36 POC Glucose (mg/dL) 129 H 172 H 111 H (75-99) mg/dL 08/29/18 Range/Units 11:39 POC Glucose (mg/dL) 166 H (75-99) mg/dL Assessment and Plan Assessment: 1. Accelerated essential hypertension 2. Hyperglycemia without acidosis. Uncontrolled diabetes type 2. Patient is noncompliant with medications at home 3. Marked Leukocytosis; sepsis versus reactive leukocytosis. Improving now. Cultures negative.. 4. Lactic acidosis Resolved 5. Vertigo/dizziness #6 DVT prophylaxis Plan; Patient be continued on Zosyn. Repeat CBC tomorrow. Cultures negative so far. Here in emergency room the patient was given IV fluids, Antivert by mouth and Ativan as well as Reglan. The patient reports her dizziness is gone. UA showed no signs of infection. No cough or sputum production. Will titrate blood pressure medications and follow closely. Patient was diagnosed with diabetes type 2 previously but not taking any medications. Continue with Amaryl now. Further recommendations based on the clinical course. Anticipate discharge tomorrow. Time with Patient: Greater than 30
[2018-08-30] MEDS ORDERED: POTASSIUM CHLORIDE ER 20 MEQ TAB.ER PO STA (14:27)
--- NOTE | 2018-08-30 14:46 | P.DS ---
Providers Date of admission: 08/28/18 15:46 Attending physician: Dottie Hanna Consults: 08/28/18 12:01 Consult Physician Routine Consulting Provider: Denice Coello Consult Reason/Comments: leukocytosis Do you want consulting provider notified?: Yes Primary care physician: Stated None Hospital Course: Discharge diagnosis 1. Accelerated essential hypertension 2. Hyperglycemia without acidosis. Uncontrolled diabetes type 2. Patient is noncompliant with medications at home 3. Marked Leukocytosis; sepsis versus reactive leukocytosis. Improving now. Cultures negative.. 4. Lactic acidosis Resolved 5. Vertigo/dizziness. Improved symptomatically. #6 DVT prophylaxis Hospital course 67-year-old female with a complaint of nausea vomiting ongoing for approximately 24 hours. Patient is a transfer from [facility]. At her facility she was treated for accelerated hypertension with labetalol. Also treated for hypokalemia, she received IV fluids. She had a CAT scan of her brain which was reported to be negative per radiologist as well as an abdominal CAT scan with contrast which was negative as well for pathology. Urine was clean. White count was elevated 22,000 with a mildly elevated lactic acid. She was transferred here. Patient reports this happened before, several years ago necessitating admission. The patient reports she has ALLERGIES to any movement of her head causes nausea and vomiting. She is denying headache no chest pain no shortness of breath no neuro deficits other than dizziness associated with head movement. 08/28/2018; Patient is seen for follow-up for uncontrolled hypertension and leukocytosis with possible sepsis; patient's family member is present at the bedside; we did talk recommend continuing IV Zosyn for possible sepsis and consult ID for further recommendations Patient's blood pressure remains markedly elevated; I will start patient on Zestoretic 2012.5 mg daily;; this was related to patient's and family in great detail and they're agreeable; we will continue with IV antibiotics and consult ID for further recommendations 08/29/2018 Patient's blood pressure is still uncontrolled. Denied any complaints of headache or dizziness. No compressive chest pain or shortness of breath. Patient was started on lisinopril 20 mg daily. Patient was given a dose of Catapres 0.1 mg. Patient does take Catapres 0.1 twice a day at home. Denied any complaints of abdominal pain today. Nausea and vomiting much improved. Patient continues to be on Zosyn. Cultures so far negative. ID has seen the patient and repeat CBC tomorrow. Otherwise no fever no chills. No other acute overnight issues. 08/30/2018 Blood pressure is better controlled today. Catapres she'll be discontinued and patient will be started on lisinopril 20 mg daily along with hydrochlorothiazide 12.5 mg daily. Continue with Amaryl. Patient is not requiring not more than 1 or 2 units of insulin sliding scale. His B A1c 7.3. Symptomatically much improved and is tolerating oral diet. Patient did have a bowel movement. No need for further antibiotics at this time. Leukocytosis is normalized. Patient was seen by ID. Stable to be discharged home and follow up with primary care physician as an outpatient. PHYSICAL EXAMINATION: Patient is lying in the bed comfortably, no acute distress, awake alert and oriented.. HEENT: Normocephalic. Neck is supple. Pupils reactive. Nostrils clear. Oral cavity is moist. Ears reveal no drainage. Neck reveals no JVD, carotid bruits, or thyromegaly. CHEST EXAMINATION: Trachea is central. Symmetrical expansion. Lung gore clear to auscultation and percussion. CARDIAC: Normal S1, S2 with no gallops. No murmurs ABDOMEN: Soft. Bowel sounds normal. No organomegaly. No abdominal bruits. Extremities: reveal no edema. No clubbing or cyanosis Neurologically awake, alert, oriented x3 with well-coordinated movements. No focal deficits noted Skin: No rash or skin lesions. Psychiatric: Coperative. Nonsuicidal Musculoskeletal: No joint swelling or deformity. Normal range of motion. Vital Signs - 8 hr 08/30/18 08/30/18 08:05 11:27 Temperature 97.8 F Pulse Rate [ 74 73 Crime Scene Technician ] Respiratory 16 18 Rate Blood Pressure 189/89 144/84 [Right Arm] O2 Sat by Pulse 95 98 Oximetry Patient Condition at Discharge: Serious Plan - Discharge Summary Discharge Rx Participant: No New Discharge Prescriptions: New Glimepiride [Amaryl] 2 mg PO W/BRKFST #30 tab Lisinopril-Hctz 20-12.5 mg [Zestoretic 20-12.5] 1 tab PO DAILY #30 tab Discharge Medication List Glimepiride [Amaryl] 2 mg PO W/BRKFST #30 tab 08/30/18 [Rx] Lisinopril-Hctz 20-12.5 mg [Zestoretic 20-12.5] 1 tab PO DAILY #30 tab 08/30/18 [Rx] Follow up Appointment(s)/Referral(s): None,Stated [Primary Care Provider] - 1-2 days Activity/Diet/Wound Care/Special Instructions: NO PCP Discharge Disposition: HOME SELF-CARE
--- NOTE | 2018-08-30 16:14 | PN ---
PROGRESS NOTE DATE OF SERVICE: 08/30/2018. REASON FOR FOLLOWUP: Leukocytosis, possible abdominal source. INTERVAL HISTORY: The patient is seen on rounds earlier this afternoon. The patient has been afebrile. She is feeling better. Breathing comfortably. No further nausea or vomiting. No abdominal pain. No diarrhea. EXAMINATION: Blood pressure 144/84 with a pulse of 73, temperature 97.8. She is 98% on room air. General description is an elderly female lying in bed in no distress. Respiratory system: Unlabored breathing, clear to auscultation anteriorly. Heart S1, S2. Regular rate and rhythm. Abdomen soft. No tenderness. LABS: Hemoglobin is 14.8, white count 8.7, BUN of 12, creatinine 0.5. DIAGNOSTIC IMPRESSION AND PLAN: Patient with elevated white count on admission to the hospital with intractable nausea and vomiting, possible acute gastritis or food poisoning. The patient's white count has normalized. No fever and symptoms have resolved. No need for antibiotic on discharge. Continue supportive care. MMODL / IJN: [id number] /
== END 2018-08-30 14:39 | disposition home or self-care (01) | DRG 392 ==
LOC: EC 14:54 → 3SCARD 17:23 → INTOOBSV 17:23 → 3SCARD 08-27 12:02 → OBSVTOIN 08-28 15:46
PROVIDERS: ADMIT Internal Medicine; ATTEND Internal Medicine
DX: K29.00 Acute gastritis without bleeding (principal); E87.2 Acidosis; I16.0 Hypertensive urgency; D72.829 Elevated white blood cell count, unspecified; E11.65 Type 2 diabetes mellitus with hyperglycemia; E86.0 Dehydration; I10 Essential (primary) hypertension; T62.91XA Toxic effect of unspecified noxious substance eaten as food, accidental (unintentional), initial encounter; M79.7 Fibromyalgia; K57.90 Diverticulosis of intestine, part unspecified, without perforation or abscess without bleeding; G89.29 Other chronic pain; R42 Dizziness and giddiness; Z91.14 Patient's other noncompliance with medication regimen; Z79.899 Other long term (current) drug therapy; Z88.8 Allergy status to other drugs, medicaments and biological substances; Z90.49 Acquired absence of other specified parts of digestive tract; Z90.710 Acquired absence of both cervix and uterus
CPT/HCPCS: 36415; 51702; 80048; 80053; 81001; 83036; 83605; 84145; 85025; 93005; 96361; 96374; 96375; 99285